=== PATIENT | male | born 1990 | race Caucasian/White ===

== ENCOUNTER 2017-04-07 18:51 | Emergency (ER) | payer OTHER ==
[2017-04-07 18:56] VITALS: BP 105/60; PULSE 56; RESP 18; TEMP 98.6; O2SAT 96
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
[2017-04-07] MEDS ORDERED: ER GLUE 1 EA MISC ONE (19:20)
[2017-04-07] MEDS ORDERED: IBUPROFEN 600 MG TAB PO ONE (19:32)
[2017-04-07] MEDS ORDERED: SKIN ADHESIVE (DERMABOND) 1 EACH TP ONE (19:39)
[2017-04-08] MEDS ORDERED: SKIN ADHESIVE (DERMABOND) 1 EACH TP ONE (06:09)
== END 2017-04-07 19:42 | disposition home or self-care (01) ==
PROC: 0HQ1XZZ Repair Face Skin, External Approach (ICD-10-PCS; principal; 2017-04-07)
DX: S01.81XA Laceration without foreign body of other part of head, initial encounter (principal); X58.XXXA Exposure to other specified factors, initial encounter

== ENCOUNTER 2017-07-16 12:34 | Emergency (ER) | payer OTHER ==
[2017-07-16 12:39] VITALS: BP 113/67; PULSE 73; RESP 20; TEMP 98.2; O2SAT 94
[2017-07-16 13:05] LABS: COLOR YELLOW; LEUKOCYTE ESTERASE,URINE NEGATIVE (NEGATIVE); NITRITE,URINE NEGATIVE (NEGATIVE)
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
== END 2017-07-16 16:17 | disposition home or self-care (01) ==
DX: N50.812 Left testicular pain (principal); J45.909 Unspecified asthma, uncomplicated